=== PATIENT | male | born 1930 | race Caucasian/White ===

== ENCOUNTER → 2016-08-15 | Outpatient (CLI) | payer MEDICARE, BC ==
--- NOTE | 2016-08-15 10:17 | US ---
EXAMINATION TYPE: US abdomen complete DATE OF EXAM: 08/15/2016 9:42 AM COMPARISON: No previous CLINICAL HISTORY: ABD Pain R10.9. 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: Pancreas: visualized portions wnl, limited by overlying midline gas Liver: visualized portions wnl, scanned intercostally, limited by rib shadowing Gallbladder: surgically absent Evidence for sonographic Morrison's sign: no CBD: visualized portions wnl, limited by overlying bowel gas Spleen: multiple tiny echogenic foci throughout, limited by rib shadowing Right Kidney: multiple cystic areas with largest measuring 4.6 x 4.6 x 4.0cm Left Kidney: multiple cystic areas with largest measuring 3.9 x 4.1 x 3.9cm Upper IVC: wnl Abd Aorta: visualized portions wnl, limited by overlying midline bowel gas The pancreas is poorly visualized. The gallbladder has been removed. 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 There are simple appearing, bilateral renal cysts. IMPRESSION: 1. LIMITED EXAMINATION. 2. MULTIPLE, SIMPLE APPEARING RENAL CYSTS BILATERALLY. 3. 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
== END | disposition home or self-care (01) ==
LOC: RADUSWWP 09:19
PROVIDERS: ATTEND Family Medicine
DX: N28.1 Cyst of kidney, acquired (principal); R10.9 Unspecified abdominal pain
CPT/HCPCS: 76700